=== PATIENT | female | born 1945 | race African-American/Black ===

== ENCOUNTER 2016-11-21 12:06 | Emergency (ER) | payer OTHER ==
[~2016-11-21] VITALS: Ht 154.9 cm; Wt 50.8 kg
--- NOTE | ~2016-11-21 | EKG ---
[address] [place] [address] ELECTROCARDIOGRAM REPORT Name: KARENELIZA L [id number] Admission: 11/21/16 Attend Phys: Discharge: 11/21/16 Date of : 49 Report #: [id number] THIS REPORT FOR: //name// [facility] ED Test Date: 2016-11-21 Test Time: 12:26:04 Pat Name: ELIZA JONES Department: Room: Gender: F Fluxer: [id number] : 1945 Requested By: Sandra Bills Order Number: [id number] MD: Jamey Sims Measurements Intervals [place] Rate: 95 P: [place]: QRS: -1 QRSD: 74 T: -42 QT: 417 QTc: 525 Interpretive Statements Normal sinus rhythm Borderline T abnormalities, diffuse leads Prolonged QT interval Baseline wander in lead(s) V2 No previous ECG available for comparison Electronically Signed On 11-22-2016 18:15:42 CDT by Jamey Sims [email or web address] <ELECTRONICALLY SIGNED> By: Jamey Sims MD, [facility] 11/22/16 1815 D: [id number] 25 Jamey Sims MD, FAC /EPI
[2016-11-21 12:48] LABS: ABSOLUTE NEUTROPHILS 5.3 thou/uL (1.4-8.2); BASOPHILS 0.7 % (0.0-2.0); EOSINOPHILS 0.1 % (0.0-3.0); HEMATOCRIT 45.2 % (37.0-47.0); MANUAL DIFF NO; MCH 30.5 pg (26.0-34.0); MCHC 35.4 g/dL (28.0-37.0); MCV 86.2 fL (80.0-100.0); MONOCYTES 8.1 % (1.0-8.0); PLATELET COUNT 376 thou/uL (150-400); POLYS 67.1 % (36.0-66.0); RBC 5.25 mil/uL (4.20-5.00); RDW 13.6 % (10.5-14.5); WBC 7.9 thou/uL (4.0-11.0)
[2016-11-21 13:05] LABS: ANION GAP 9 mmol/L (7-16); BUN 6 mg/dL (7-18); CALCIUM 9.6 mg/dL (8.5-10.1); CHLORIDE 93 mmol/L (98-107); CO2 26 mmol/L (21-32); CREATININE 0.8 mg/dL (0.6-1.0); GLUCOSE 123 mg/dL (74-106); POTASSIUM 3.4 mmol/L (3.5-5.1); SODIUM 128 mmol/L (136-145); TROPONIN-I < 0.04 ng/mL (<0.04-0.07)
[2016-11-21] MEDS ORDERED: CLONIDINE0.1 PO (13:15)
[2016-11-21 13:30] VITALS: BP 159/91
== END 2016-11-21 13:15 | disposition home or self-care (01) ==
LOC: ER 12:06
PROVIDERS: Emergency Medicine
DX: R42 Dizziness and giddiness (principal); I10 Essential (primary) hypertension; F17.210 Nicotine dependence, cigarettes, uncomplicated; E78.00 Pure hypercholesterolemia, unspecified

== ENCOUNTER 2016-11-23 09:42 | Emergency (ER) | payer OTHER ==
[~2016-11-23] VITALS: Ht 154.9 cm; Wt 49.9 kg
--- NOTE | ~2016-11-23 | EKG ---
[address] [address] [facility] [place] [address] ELECTROCARDIOGRAM REPORT Name: AMAYA JONESJOHN Reyes Room #: [facility]#: [id number] Admission: 11/23/16 Attend Phys: Discharge: 11/23/16 Date of : 49 Report #: [id number] THIS REPORT FOR: //name// [facility] ED Test Date: 2016-11-23 Test Time: 11:06:32 Pat Name: ELIZA JONES Department: Room: Gender: F Station Manager: Nahed MALIK : 1945 Requested By: Gerardo Kilgore Order Number: [id number] MD: Jamey Sims Measurements Intervals [place] Rate: 82 P: 46 ND: 148 QRS: -19 QRSD: 76 T: -29 QT: 452 QTc: 528 Interpretive Statements Sinus rhythm Nonspecific T wave abnormality Prolonged QT interval Compared to ECG 11/21/2016 12:26:04 No significant change was found Electronically Signed On 11-24-2016 9:21:04 CDT by Jamey Sims [email or web address] <ELECTRONICALLY SIGNED> By: Jamey Sims MD, [facility] 11/24/16 0921 05 Jamey Sims MD, [facility] /EPI
[~2016-11-23 09:42] MED LIST: CLONIDINE0.1 PO
[2016-11-23 10:03] VITALS: BP 165/87
[2016-11-23 12:30] LABS: ABSOLUTE NEUTROPHILS 5.2 thou/uL (1.4-8.2); BASOPHILS 0.4 % (0.0-2.0); EOSINOPHILS 0.1 % (0.0-3.0); HEMATOCRIT 44.8 % (37.0-47.0); HEMOGLOBIN 15.9 gm/dL (12.0-15.0); LYMPHOCYTES 22.9 % (24.0-44.0); MANUAL DIFF NO; MCH 30.7 pg (26.0-34.0); MCHC 35.5 g/dL (28.0-37.0); MCV 86.3 fL (80.0-100.0); MONOCYTES 6.4 % (1.0-8.0); PLATELET COUNT 387 thou/uL (150-400); POLYS 70.2 % (36.0-66.0); RBC 5.18 mil/uL (4.20-5.00); RDW 13.8 % (10.5-14.5); WBC 7.5 thou/uL (4.0-11.0)
[2016-11-23 12:39] LABS: ANION GAP 9 mmol/L (7-16); BUN 7 mg/dL (7-18); CALCIUM 9.7 mg/dL (8.5-10.1); CHLORIDE 97 mmol/L (98-107); CO2 28 mmol/L (21-32); CREATININE 0.8 mg/dL (0.6-1.0); GLUCOSE 104 mg/dL (74-106); POTASSIUM 3.5 mmol/L (3.5-5.1); SODIUM 134 mmol/L (136-145)
[2016-11-23 12:52] LABS: NT-PRO BRAIN NAT PEPTIDE 127 pg/mL (<300); TROPONIN-I < 0.04 ng/mL (<0.04-0.07)
[2016-11-23 13:24] LABS: URINE BILIRUBIN NEGATIVE (Negative); URINE BLOOD NEGATIVE (Negative); URINE COLOR YELLOW; URINE GLUCOSE-RANDOM* NEGATIVE (Negative); URINE KETONES TRACE (Negative); URINE NITRITE NEGATIVE (Negative); URINE PROTEIN (DIPSTICK) NEGATIVE (Negative); URINE SPECIFIC GRAVITY <= 1.005 (1.003-1.035)
== END 2016-11-23 12:30 | disposition home or self-care (01) ==
LOC: ER 09:42
PROVIDERS: Nurse Practitioner
DX: F91.8 Other conduct disorders (principal); I10 Essential (primary) hypertension; E78.00 Pure hypercholesterolemia, unspecified; F17.210 Nicotine dependence, cigarettes, uncomplicated

== ENCOUNTER → 2017-05-31 | Outpatient (CLI) | payer OTHER ==
[~2017-05-31] VITALS: Ht 154.9 cm; Wt 49.4 kg
[~2017-05-31] MED LIST changes: +ASPIR 8181 MG PO; +ATORVASTATIN CA40 MG PO; +BIOTIN1 MG PO; +HYDROCHLOROTHIA25 M1 PO; +IRON325 PO; +MOBIC15 MG PO; +SYNTHROID150 MCG PO; +VITAMIN B-12500 MCG PO
[2017-05-31 13:19] VITALS: BP 141/75
== END ==
LOC: SEN 05-21 08:43
DX: I10 Essential (primary) hypertension (principal); E78.5 Hyperlipidemia, unspecified; E03.9 Hypothyroidism, unspecified; M19.042 Primary osteoarthritis, left hand; M19.041 Primary osteoarthritis, right hand; M19.032 Primary osteoarthritis, left wrist; M19.031 Primary osteoarthritis, right wrist

== ENCOUNTER → 2017-09-28 | Outpatient (CLI) | payer OTHER ==
[~2017-09-28] VITALS: Ht 154.9 cm; Wt 50.6 kg
[~2017-09-28] MED LIST changes: -VITAMIN B-12500 MCG PO
[2017-09-28 13:04] VITALS: BP 137/80
[2017-09-28 14:45] LABS: ABSOLUTE NEUTROPHILS 5.6 thou/uL (1.4-8.2); BASOPHILS 0.5 % (0.0-2.0); EOSINOPHILS 0.6 % (0.0-3.0); HEMATOCRIT 44.8 % (37.0-47.0); HEMOGLOBIN 15.4 gm/dL (12.0-15.0); LYMPHOCYTES 30.9 % (24.0-44.0); MCHC 34.4 g/dL (28.0-37.0); MCV 87.2 fL (80.0-100.0); MONOCYTES 10.1 % (1.0-8.0); POLYS 57.9 % (36.0-66.0); RBC 5.14 mil/uL (4.20-5.00); RDW 14.3 % (10.5-14.5); WBC 10.6 thou/uL (4.0-11.0)
[2017-09-28 14:57] LABS: ALBUMIN 3.8 g/dL (3.4-5.0); ANION GAP 7 mmol/L (7-16); BUN 11 mg/dL (7-18); CALCIUM 9.9 mg/dL (8.5-10.1); CHLORIDE 100 mmol/L (98-107); CHOLESTEROL 158 mg/dL (<200); CO2 30 mmol/L (21-32); CREATININE 0.8 mg/dL (0.6-1.0); GLUCOSE 132 mg/dL (74-106); HDL CHOLESTEROL 45 mg/dL (>40); LDL CHOLESTEROL 95 mg/dL (<100); MAGNESIUM 1.9 mg/dL (1.8-2.4); POTASSIUM 3.5 mmol/L (3.5-5.1); SGOT 16 U/L (15-37); SGPT 16 U/L (30-65); SODIUM 137 mmol/L (136-145); TC:HDL 3.5 Ratio (Not establshd); TOTAL BILIRUBIN 0.4 mg/dL (<0.1-1.0); TOTAL PROTEIN 8.3 g/dL (6.4-8.2); TRIGLYCERIDE 94 mg/dL (<150); VLDL 19 mg/dL (<40)
[2017-09-28 15:16] LABS: PLATELET COUNT 273 thou/uL (150-400)
[2017-09-28 15:23] LABS: TSH 0.01 uIU/mL (0.358-3.740)
[2017-09-29 03:11] LABS: GLYCOHEMOGLOBIN (HGB A1C) 7.9 % (4.8-5.6)
== END ==
LOC: SEN 07:57
PROVIDERS: Nurse Practitioner Family
DX: Z09 Encounter for follow-up examination after completed treatment for conditions other than malignant neoplasm (principal); I10 Essential (primary) hypertension; I25.10 Atherosclerotic heart disease of native coronary artery without angina pectoris; E03.9 Hypothyroidism, unspecified; E78.5 Hyperlipidemia, unspecified; D50.9 Iron deficiency anemia, unspecified; M19.90 Unspecified osteoarthritis, unspecified site

== ENCOUNTER → 2017-10-09 | Outpatient (CLI) | payer OTHER ==
[2017-10-09 13:29] VITALS: BP 138/77
== END ==
LOC: SEN 07:51
DX: E11.9 Type 2 diabetes mellitus without complications (principal); E03.9 Hypothyroidism, unspecified; E53.8 Deficiency of other specified B group vitamins

== ENCOUNTER → 2018-07-24 | Outpatient (CLI) | payer OTHER ==
[~2018-07-24] MED LIST changes: +VITAMIN B-12500 MCG PO
== END ==
LOC: SEN 08:06
DX: E03.9 Hypothyroidism, unspecified (principal); R73.09 Other abnormal glucose; R79.89 Other specified abnormal findings of blood chemistry; E78.5 Hyperlipidemia, unspecified; D64.9 Anemia, unspecified; I10 Essential (primary) hypertension; M19.041 Primary osteoarthritis, right hand; F17.210 Nicotine dependence, cigarettes, uncomplicated; Z79.899 Other long term (current) drug therapy; Z68.21 Body mass index [BMI] 21.0-21.9, adult; Z83.3 Family history of diabetes mellitus; Z80.3 Family history of malignant neoplasm of breast; Z82.49 Family history of ischemic heart disease and other diseases of the circulatory system

== ENCOUNTER → 2018-09-02 | Outpatient (CLI) | payer OTHER | LOC: SEN 08-14 08:10 | DX: Z71.2 Person consulting for explanation of examination or test findings (principal); I10 Essential (primary) hypertension; E03.9 Hypothyroidism, unspecified; E11.65 Type 2 diabetes mellitus with hyperglycemia; E87.1 Hypo-osmolality and hyponatremia; E87.6 Hypokalemia; E78.00 Pure hypercholesterolemia, unspecified; M19.90 Unspecified osteoarthritis, unspecified site; F17.210 Nicotine dependence, cigarettes, uncomplicated ==

== ENCOUNTER 2019-11-12 13:18 | Emergency (ER) | payer OTHER ==
[~2019-11-12] VITALS: Ht 154.9 cm; Wt 47.2 kg
[2019-11-12 14:07] LABS: ABSOLUTE NEUTROPHILS 4.8 thou/uL (1.4-8.2); BASOPHILS 0.7 % (0.0-2.0); EOSINOPHILS 0.6 % (0.0-3.0); HEMATOCRIT 46.1 % (37.0-47.0); HEMOGLOBIN 15.7 gm/dL (12.0-15.0); MCH 29.9 pg (26.0-34.0); MCV 87.9 fL (80.0-100.0); MONOCYTES 8.2 % (1.0-8.0); PLATELET COUNT 357 thou/uL (150-400); POLYS 62.5 % (36.0-66.0); RBC 5.24 mil/uL (4.20-5.00); RDW 14.8 % (10.5-14.5); WBC 7.7 thou/uL (4.0-11.0)
[2019-11-12 14:14] LABS: CALCIUM 9.4 mg/dL (8.5-10.1); CREATININE 0.7 mg/dL (0.6-1.0); POTASSIUM 3.9 mmol/L (3.5-5.1)
[2019-11-12 14:18] LABS: PROTIME 10.5 Seconds (9.3-11.4)
[2019-11-12 14:19] LABS: ALBUMIN 3.9 g/dL (3.4-5.0); TOTAL BILIRUBIN 0.3 mg/dL (0.2-1.0); TOTAL PROTEIN 8.4 g/dL (6.4-8.2)
--- NOTE | 2019-11-12 15:40 | EKG ---
[facility] [place] [address] ELECTROCARDIOGRAM REPORT Name: KARENAMAYAELIZA L Room #: [facility]#: [id number] Admission: 11/12/19 Attend Phys: Discharge: Date of : 49 Report #: [id number] THIS REPORT FOR: cc: RHYS - [facility] family physician/PCP RHYS - [facility] family physician/PCP Abraham Moran MD ~ THIS REPORT FOR: //name// [facility] ED Test Date: 2019-11-12 Test Time: 14:58:06 Pat Name: ELIZA JONES Department: Room: Gender: F [employer]: [facility] [place] : 1945 Requested By: Areli Mariano Order Number: [id number] MD: Abraham Moran Measurements Intervals [place] Rate: 81 P: 13 [place]: 152 QRS: -32 QRSD: 79 T: 36 QT: 396 QTc: 460 Interpretive Statements Sinus rhythm Probable left atrial enlargement Left ventricular hypertrophy Compared to ECG 11/23/2016 11:06:32 Left ventricular hypertrophy now present T-wave abnormality no longer present Prolonged QT interval no longer present Electronically Signed On 11-12-2019 15:39:52 CDT by Abraham Moran [email or web address] <ELECTRONICALLY SIGNED> By: Abraham Moran MD 11/12/19 1539 1458 1458 Abraham Moran MD /EPI
[2019-11-12 15:41] VITALS: BP 126/84
== END 2019-11-12 15:42 | disposition still patient (30) ==
LOC: ER 13:18
PROVIDERS: Physician Assistant
DX: R53.1 Weakness (principal); I10 Essential (primary) hypertension; F17.210 Nicotine dependence, cigarettes, uncomplicated; Z86.2 Personal history of diseases of the blood and blood-forming organs and certain disorders involving the immune mechanism; Z86.73 Personal history of transient ischemic attack (TIA), and cerebral infarction without residual deficits; Z79.899 Other long term (current) drug therapy; Z79.82 Long term (current) use of aspirin

== ENCOUNTER → 2019-11-20 | Outpatient (CLI) | payer OTHER | LOC: MRI 09:08 | PROVIDERS: ATTEND Family Medicine | DX: I63.30 Cerebral infarction due to thrombosis of unspecified cerebral artery (principal); I67.89 Other cerebrovascular disease ==